=== PATIENT | male | born 1960 | race Caucasian/White ===

== ENCOUNTER → 2018-07-25 | Outpatient (CLI) | payer OTHER ==
[~2018-07-25] MED LIST: ATR20T PO; BNZ20T PO; CHOL10003 PO; DICL100G20 PO; DICL1TAB PO; ESZO2TAB4 PO; MISO200T4 PO; MULT1CAP27 PO; NF-ESOM40C PO; OMEG-12 PO; RT-ALBUTEROL SULF 2.5 MG/3 ML PRE-MIX VIAL INH ONE; RT-ALBUTEROL SULF 2.5 MG/3 ML PRE-MIX VIAL ONE; SCR1T1 PO; humira IM
--- NOTE | 2018-07-25 18:14 | Diagnostic Imaging Report ---
EXAMINATION: PA and lateral Chest at 3:59 p.m. INDICATION: Productive cough. FINDINGS: The heart size is within normal limits and stable when compared to 05/14/2007. The lungs remain clear. There is still no sign of failure, pneumonia, or pleural effusion. The mediastinum is not widened. The osseous structures are intact. IMPRESSION: There is no evidence for an acute cardiopulmonary abnormality. Dictated by: Dictated on workstation # [id number]
== END ==
LOC: RT 15:48
PROVIDERS: ATTEND Internal Medicine
DX: R05 Cough (principal)
CPT/HCPCS: 71046; 94060; 94726; 94729

== ENCOUNTER → 2019-08-08 | Outpatient (CLI) | payer OTHER ==
[~2019-08-08] MED LIST changes: -RT-ALBUTEROL SULF 2.5 MG/3 ML PRE-MIX VIAL INH ONE; -RT-ALBUTEROL SULF 2.5 MG/3 ML PRE-MIX VIAL ONE
--- NOTE | 2019-08-08 17:01 | Diagnostic Imaging Report ---
Indication: Cough PA and lateral chest Heart size and pulmonary vascularity are normal. Lungs are clear. There are no effusions or pneumothoraces. IMPRESSION: Negative chest Dictated by: Dictated on workstation # [id number]
== END ==
LOC: RAD 16:50
PROVIDERS: ATTEND Internal Medicine
DX: R05 Cough (principal)
CPT/HCPCS: 71046

== ENCOUNTER → 2019-10-28 | Outpatient (CLI) | payer OTHER ==
--- NOTE | 2019-10-28 16:56 | Diagnostic Imaging Report ---
PROCEDURE: CT chest without contrast. TECHNIQUE: Multiple contiguous axial images were obtained through the chest without the use of intravenous contrast. Auto Exposure Controls were utilized during the CT exam to meet ALARA standards for radiation dose reduction. INDICATION: History of bladder cancer. Bronchiectasis and mucus plugs. FINDINGS: There are no discrete pulmonary nodules, masses, or infiltrates. There is no pleural or pericardial fluid. There is no pneumothorax. Thoracic aorta is normal in caliber. There is no pathologically enlarged adenopathy in the chest. There is no evidence of interstitial lung disease or bronchiectasis. There are no endobronchial lesions. The visualized intra-abdominal structures are unremarkable. There are mild degenerative changes in the spine. IMPRESSION: Unremarkable noncontrast CT chest. Specifically, there is no evidence of interstitial lung disease or bronchiectasis. Dictated by: Dictated on workstation # [id number]
== END ==
LOC: RAD 14:28
PROVIDERS: ATTEND Internal Medicine Critical Care Medicine
DX: J47.9 Bronchiectasis, uncomplicated (principal); J41.1 Mucopurulent chronic bronchitis; D84.9 Immunodeficiency, unspecified; J98.8 Other specified respiratory disorders; J32.8 Other chronic sinusitis
CPT/HCPCS: 71250

== ENCOUNTER → 2021-06-13 | Outpatient (CLI) | payer BC ==
--- NOTE | 2021-06-13 19:13 | Diagnostic Imaging Report ---
EXAM: Chest PA/LAT (2 view) INDICATION: Cough. COVID positive. COMPARISON: CT chest 08/08/2019. FINDINGS: Normal heart size and central pulmonary vascularity. No focal pulmonary opacity. No pleural effusion or pneumothorax. No acute osseous findings. IMPRESSION: Negative chest. Findings reported to Dr. Jignesh Gaming at 7:09 PM on 06/13/2021. Dictated by: Dictated on workstation # [id number]
== END ==
LOC: RAD 18:22
PROVIDERS: ATTEND Family Medicine
DX: U07.1 COVID-19 (principal)
CPT/HCPCS: 71046

== ENCOUNTER → 2022-02-16 | Outpatient (CLI) | payer BC | END | disposition home or self-care (01) | LOC: PREOP 06:22 | PROVIDERS: ATTEND Internal Medicine | DX: Z01.818 Encounter for other preprocedural examination (principal) ==

== ENCOUNTER → 2022-08-02 | Outpatient (CLI) | payer BC ==
--- NOTE | 2022-08-02 17:07 | Diagnostic Imaging Report ---
EXAMINATION: Chest 2 view HISTORY: Cough COMPARISON: 06/13/2021 FINDINGS: The lungs are clear without edema or pneumonia. No pleural effusion or pneumothorax. Heart size is normal. IMPRESSION: 1. Clear lungs. Dictated by: Dictated on workstation # [id number]
== END ==
LOC: RAD 12:39
PROVIDERS: ATTEND Internal Medicine
DX: R05.9 Cough, unspecified (principal)
CPT/HCPCS: 71046

== ENCOUNTER → 2022-09-28 | Outpatient (CLI) | payer BC ==
--- NOTE | 2022-09-28 11:48 | Diagnostic Imaging Report ---
Indication: Cough. Time of Exam: 11:41 AM Correlation is made with prior chest from 08/02/2022. Heart size normal. Lungs are clear. No infiltrates are seen. There is no effusion or pneumothorax. Impression: No acute cardiopulmonary process is identified. Dictated by: Dictated on workstation # [id number]
== END ==
LOC: RAD 11:11
PROVIDERS: ATTEND Internal Medicine
DX: R05.9 Cough, unspecified (principal)
CPT/HCPCS: 71046

== ENCOUNTER → 2022-09-28 | Outpatient (CLI) | payer BC | LOC: LAB 12:55 | PROVIDERS: ATTEND Internal Medicine | DX: U07.1 COVID-19 (principal); N42.9 Disorder of prostate, unspecified | CPT/HCPCS: 87040 ==

== ENCOUNTER 2023-03-17 08:04 | Day surgery (SDC) | payer BC ==
--- NOTE | 2023-03-08 01:10 | HISTORY AND PHYSICAL ---
COLONOSCOPY HISTORY AND PHYSICAL HISTORY OF PRESENT ILLNESS: The patient is a 62-year-old white male referred by Dr. Matthews for screening colonoscopy. He last accomplished screening colonoscopy 10 years ago. He reports that there is a family history for colon cancer in his father and possibly grandfather. He had no evidence for neoplasia 10 years ago. 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 PAST MEDICAL HISTORY: He has a past history of hypogonadism, hypertension without known coronary artery disease and he is on androgen replacement for hypogonadism, in the form of AndroGel two pumps daily. He also has a history of hypercholesterolemia with no known history of coronary artery disease. Significant for bladder cancer. It was apparently noninvasive, diagnosed in 2015. He finished a course of mitomycin with no evidence for recurrence. He has had prostate biopsies for elevated PSA that were negative for cancer. FAMILY HISTORY: As noted in the HPI. SOCIAL HISTORY: He is retired with no smoking history and rare small volume alcohol intake. REVIEW OF SYSTEMS: CONSTITUTIONAL: Denies night sweats, chills, fever or change in weight. GASTROINTESTINAL: Denies abdominal pain, rectal bleeding, bright red melena or change in bowel habit. PULMONARY: Denies cough, wheezing or shortness of breath. CARDIOVASCULAR: Denies chest pain, orthopnea, PND, or pedal edema. PHYSICAL EXAMINATION: GENERAL: Reveals a pleasant white male who appeared to be in no acute distress. VITAL SIGNS: Weight 200 pounds, blood pressure 130/80. HEENT: Unremarkable. CHEST: Clear. CARDIOVASCULAR: Reveals a regular rate and rhythm without murmur, S3, or S4. ABDOMEN: Soft, supple without mass, organomegaly, or tenderness. EXTREMITIES: Revealed no cyanosis, clubbing or edema. ASSESSMENT AND PLAN: The patient is being set up for screening colonoscopy, deemed to be of higher than average risk secondary to family history for colon cancer as noted above. Prep instructions were given and questions were answered. He is advised hold diclofenac 48 hours prior to the test, and continuing his other medication. I thank you for the referral of this pleasant gentleman. Job ID: [id number] DocumentID: [id number] Dictated Date: 03/06/2023 17:29:36 Mold Yarn Supervisor Date: 03/06/2023 18:06:00 Dictated By: RADHA LOWE MD
[~2023-03-17] VITALS: Ht 180.3 cm; Wt 90.7 kg
[2023-03-17] MEDS ORDERED: LACTATED RINGERS 1,000 ML 1,000 ML IV STA (08:07)
--- NOTE | 2023-03-17 08:25 | Pre-Op Note & Conscious Sedat ---
Pre-Operative Progress Note Date H&P Reviewed: Mar 17, 2023 Time H&P Reviewed: 08:24 Pre-Op Diagnosis: screening Moderate Sedation PreProcedure ASA Score 2 Airway Lungs Heart ASA score ASA 1: a normal healthy patient ASA 2: a patient with a mild systemic disease (mid diabetes, controlled hypertension, obesity ASA 3: a patient with a severe systemic disease that limits activity (angina, COPD, prior Myocardial infarction) ASA 4: a patient with an incapacitating disease that is a constant threat to life (CHF, renal failure) ASA 5: a moribund patient not expected to survive 24 hrs. (ruptured aneurysm) ASA 6: a declared brain- patient whose organs are being harvested. For emergent operations, add the letter E after the classification Mallampati Classification Grade 2 Sedation Plan Analgesia, Amnesia, Plan communicated to team members, Discussed options with patient/fam, Discussed risks with patient/fam The patient is an appropriate candidate to undergo the planned procedure, sedation, and anesthesia. The patient immediately re-assessed prior to indication. RADHA LOWE MD Mar 17, 2023 08:25
[2023-03-17 08:31] VITALS: BP 116/74
--- NOTE | 2023-03-17 08:54 | Progress Note-Post Operative ---
Post-Procedure Note Physician (s)/Chief Lending Officer (s) Physician RADHA LOWE MD Pre-Procedure Diagnosis Pre-Procedure Diagnosis: screening Post-Procedure Diagnosis Post-operative diagnosis: Prior to undergoing colonoscopy digital rectal evaluation was performed. Anal sphincter tone was normal and the perianal reflexes intact. prostate was unremarkable on digital inspection. No other abnormalities were noted on digital inspection anal canal distal rectal vault. The colonoscope was then inserted into the rectum and under direct visualization advanced to the cecum. The cecum was identified by the indication of the ileocecal valve and cecal strap. Photographic documentation obtained. Careful inspection was made as the colonoscope withdrawn. Quality the prep was good. Findings there were no evidence for internal or external hemorrhoids and the rectum was unremarkable. There was no evidence for recurrence of the previous large pedunculated polyps that were removed 1 year ago from the sigmoid colon which was a unremarkable on today's evaluation. The descending colon was unremarkable. Present in the distal transverse colon was a diminutive 3 mm sessile inflammatory appearing polyp it was biopsied and ablated and submitted for histopathology. The remainder the transverse colon hepatic flexure ascending colon and cecum were unremarkable. A/P 1. No evidence for recurrence of previous large pedunculated sigmoid colonic polyps as noted on today's evaluation. One 3 mm sessile inflammatory appearing polyp was noted in distal transverse colon was biopsied and ablated and submitted for histopathology. As long as there are no surprises on histopathology would advocate repeat surveillance colonoscopy in 5 years. Patient did exhibit obstructive breathing pattern throughout the procedure. This and a narrow posterior pharynx significantly increased risk for sleep apnea. Discussed my concerns with the patient and advised that he return to see Dr. Bolton to see about getting set up for sleep study for evaluation for obstructive sleep apnea. I thank you for the furl this pleasant gentleman Sincerely, Radha Lowe MD. CC: Dr. Sudeep Bolton MD. RADHA LOWE MD Mar 17, 2023 08:54
[2023-03-17 09:20] VITALS: BP_SYST 104; BP_SYST 107; BP_DIAS 63; BP_DIAS 67
--- NOTE | 2023-03-17 09:20 | Progress Note-Post Operative ---
Post-Procedure Note Physician (s)/Storeperson (s) Physician RADHA LOWE MD Pre-Procedure Diagnosis Pre-Procedure Diagnosis: screening Post-Procedure Diagnosis Post-operative diagnosis: Prior to undergoing colonoscopy digital rectal evaluation was performed. Anal sphincter tone was normal and the perianal reflexes intact. Prostate is normal in size and a nodular on digital inspection no abnormalities were noted on Annette specks in anal canal or distal rectal vault. The colonoscope was then inserted into the rectum and under direct relation advanced the cecum. The cecum was identified by the indication of the ileocecal valve and cecal strap. Photographic documentation was obtained. A careful inspection was made as the colonoscope was withdrawn. Quality the prep was good. Findings: 1 grade 2 internal hemorrhoid complex was noted with no evidence for external hemorrhoids. The rectum was unremarkable. Present mid and proximal sigmoid colon were a moderate number of small and medium sized diverticulum. There was no evidence to suggest diverticulitis. No other sigmoid colonic adenitis appreciated. The descending colon splenic flexure transverse colon hepatic flexure ascending colon and cecum were unremarkable. A/P 1. No evidence for neoplasia was identified on today's colonoscopy under good prep conditions. Considering family history would advocate consideration for repeat screening colonoscopy in 5 years. Moderate diverticular disease was noted in the mid and proximal sigmoid colon without evidence of diverticulitis. 1 grade 2 internal hemorrhoid complex was noted as well with no other abnormalities being appreciated today. I thank you for the referral of this pleasant gentleman sincerely Radha Lowe MD. CC: Dr. Valerie Matthews DO. RADHA LOWE MD Mar 17, 2023 09:20
[2023-03-17 09:50] VITALS: BP 126/81
[2023-03-17 10:10] VITALS: BP 126/81
--- NOTE | 2023-03-17 11:40 | Anesthesia-General Post-Op ---
MAC Patient Condition Mental Status/LOC: Same as Preop Cardiovascular: Satisfactory Nausea/Vomiting: Absent Respiratory: Satisfactory Pain: Controlled Complications: Absent Post Op Complications Complications None Follow Up Care/Instructions Patient Instructions None needed. Anesthesiology Discharge Order Discharge Order Patient was doing well this morning after the procedure with no complaints, stable vital signs, no apparent adverse anesthesia problems. No complications reported per nursing. JAC HOSKINS DO Mar 17, 2023 11:40
== END 2023-03-17 10:10 | disposition home or self-care (01) ==
LOC: ENDO 08:04
PROVIDERS: ATTEND Internal Medicine
DX: Z12.11 Encounter for screening for malignant neoplasm of colon (principal); K64.1 Second degree hemorrhoids; K57.30 Diverticulosis of large intestine without perforation or abscess without bleeding; Z80.0 Family history of malignant neoplasm of digestive organs; E29.1 Testicular hypofunction